=== PATIENT | male | born 1985 | race African-American/Black ===

== ENCOUNTER 2017-04-17 05:56 | Emergency (ER) | payer SELFPAY ==
[~2017-04-17] VITALS: Ht 188 cm; Wt 81.6 kg
[2017-04-17] MEDS ORDERED: ONDA4TAB10 PO (06:12)
[2017-04-17] MEDS ORDERED: NAPR-683 PO (06:12)
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
[2017-04-17] MEDS ORDERED: KETOROLAC 60 MG/2 ML INJ. IM ONE (06:15)
[2017-04-17] MEDS ORDERED: ONDANSETRON ODT 4 MG TAB.RAPDIS. PO ONE (06:15)
[2017-04-17] MEDS ORDERED: KETOROLAC 60 MG/2 ML INJ. ONE (06:16)
[2017-04-17] MEDS ORDERED: ONDANSETRON ODT 4 MG TAB.RAPDIS. ONE (06:16)
[2017-04-17 06:25] VITALS: BP 137/92
== END 2017-04-17 06:23 | disposition home or self-care (01) ==
LOC: ER 05:56
DX: G43.009 Migraine without aura, not intractable, without status migrainosus (principal); R03.0 Elevated blood-pressure reading, without diagnosis of hypertension; F41.9 Anxiety disorder, unspecified
CPT/HCPCS: 96372; 99283; J1885; Q0162